=== PATIENT | female | born 1950 | race Caucasian/White ===

== ENCOUNTER 2017-07-30 20:22 | Inpatient (IN) | payer OTHER ==
[~2017-07-30] VITALS: Ht 160 cm; Wt 77.1 kg
--- NOTE | ~2017-07-30 | HC ---
[facility] [address] CONSULTATION Name: SALVATORE DENNIS Room #: 416-P ADM IN M.R.#: [id number] Admission: 07/31/17 Attend Phys: Sree Gibson DO Discharge: Date of : 50 Report #: [id number] THIS REPORT FOR: //name// CC: [facility] physician/PCP Sree Gibson DATE OF SERVICE: 07/31/2017 REFERRING PROVIDER: Sree Gibson DO REASON FOR CONSULT: Colitis. HISTORY OF PRESENT ILLNESS: The patient is a 67-year-old female who was in her usual state of health until yesterday when she ate a large amount of watermelon and a large steak dinner and had immediate abdominal distention and crampy abdominal pain. The patient developed some right hand tremors and she developed numerous episodes of emesis and diarrhea, which contained dark red blood. The patient had ongoing lower abdominal cramping and as such, she presented for evaluation. Her most recent colonoscopy was 10 years ago and was normal. She has had no prior episodes similar in the past. Workup in the form of laboratories and a CT scan of the abdomen and pelvis were obtained. The patient's labs showed a normal white blood cell count with a slight left shift of 80% neutrophils and her lactic acid was normal at 1.0. Her CT scan, however, showed acute inflammation about the descending colon with circumferential mural thickening and pericolonic inflammation without evidence of diverticula present in this area. In addition, she had sigmoid diverticulosis that were not inflamed. As the patient has evidence of a segmental colitis, she is admitted and I am asked to evaluate from a surgical standpoint. PAST MEDICAL HISTORY: Hypertension, diabetes mellitus, hypothyroidism, rheumatoid arthritis, partial thyroidectomy, bilateral total knee replacements and right shoulder repair. HOME MEDICATIONS: Lisinopril, amlodipine, methotrexate, hydrochlorothiazide, folic acid, Synthroid, vitamin D3, calcium, aspirin, and Centrum Silver. ALLERGIES: No known drug allergies. FAMILY HISTORY: Reviewed and noncontributory. SOCIAL HISTORY: The patient does not utilize tobacco, alcohol or illicit drugs. REVIEW OF SYSTEMS: GENERAL: The patient denies nocturnal fevers or chills. HEENT: No change in vision or change in hearing. NECK: No swelling or difficulty swallowing. [address] [address] CONSULTATION Name: SALVATORE DENNIS Room #: 416-P [facility] IN .R.#: [id number] Admission: 07/31/17 Attend Phys: Sree Gibson DO Discharge: Date of : 50 Report #: [id number] HEART: No chest pain or palpitations. LUNGS: No cough or shortness of breath. ABDOMEN: Abdominal pain, nausea, and vomiting. GENITOURINARY: No dysuria or hematuria. ENDOCRINE: No polyuria or polydipsia. HEMATOLOGIC: No history of bleeding or easy bruising. EXTREMITIES: No history of weakness or limited range of motion. NEUROLOGIC: No history of syncope or near syncopal episodes. SKIN AND INTEGUMENT: No history of abnormal lesions or moles. PSYCHIATRIC: No history of anxiety or depression. PHYSICAL EXAMINATION: VITAL SIGNS: Temperature 98.2, pulse 57, respirations 16, blood pressure 132/48, she is 5 feet 3 inches tall and weighs 170 pounds. GENERAL: Alert and oriented, in no acute distress. HEENT: Normocephalic, atraumatic. Pupils are equal, round, and reactive to light. NECK: Supple, without lymphadenopathy. Trachea midline. HEART: Regular rate and rhythm. LUNGS: Clear to auscultation bilaterally. ABDOMEN: Soft, nondistended, very minimal tenderness to deep palpation in the left flank, but no guarding, no rebound, no peritoneal signs or symptoms. GENITOURINARY: Normal external female genitalia. EXTREMITIES: No clubbing, cyanosis or edema. NEUROLOGIC: Cranial nerves 2-12 are grossly intact. PSYCHIATRIC: Normal mood and affect. SKIN AND INTEGUMENT: No abnormal lesions or moles. LABORATORY AND X-RAY DATA: CBC showed a white blood cell count of 9.6 thousand, hemoglobin 12.0, platelets 231,000. Creatinine is 1.4. Liver function enzymes are normal. Lactic acid normal at 1.0. Urinalysis is negative. TSH is slightly low at 0.27. CT scan of the abdomen and pelvis as per HPI shows segmental colitis of the descending colon, not associated with diverticula, although she does have sigmoid diverticulosis more distally without inflammation. ASSESSMENT AND PLAN: A 67-year-old female with segmental colitis, likely ischemic versus less likely infectious as no other contacts have had similar symptoms. Stool cultures are currently pending and she has been started on empiric Cipro and Flagyl. I do think she is reasonable to be on a clear liquid diet at this point as she has a marked improvement in her abdominal exam just with IV fluid rehydration since her presentation to the emergency room late last evening. I recommend a gastroenterology evaluation as she will likely necessitate repeat colonoscopy at some point once her inflammation has subsided and this will likely be done as an outpatient, but I will defer to gastroenterology and their expertise in this regard. I see no evidence of [facility] [address] [place] [address] CONSULTATION Name: SALVATORE DENNIS Room #: 416-P ADM IN .R.#: [id number] Admission: 07/31/17 Attend Phys: Sree Gibson, Discharge: Date of : 50 Report #: [id number] necessity for immediate general surgical intervention; however, I sincerely appreciate this consult. I will follow along closely while hospitalized and leave any further recommendations in the patient's chart as appropriate. <ELECTRONICALLY SIGNED> By: Josiane Beatty MD, FACS 08/01/17 1501 1301 1821 Josiane Beatty MD, FACS /nt
--- NOTE | ~2017-07-30 | PATH ---
[facility] [place] [address] [address] PATHOLOGY RPT PROCEDURE Name: SALVATORE MARTE Eladio Room #: 416-P DIS IN M.R.#: [id number] Admission: 07/31/17 Date of : 50 Discharge: 08/02/17 Report #: [id number] Path Case #: [id number] [facility] Accession Number: [id number] . 01 Material submitted: . BX OF SPLENIC FLEXURE TO DISTAL DESCENDING R/O ISCHEMIC . 01 Clinical history: . Pre-OP DX: Colitis Post -OP DX: Colitis, diverticulosis, internal hemorrhoids . 02 Diagnosis: Large intestine mucosa, splenic flexure to distal descending, endoscopic biopsy: - Compatible with ischemic colitis (please see comment). - Negative for dysplasia or malignancy. QRQ/08/02/2017 . 02 Comment: Examination shows fibrotic lamina propria with ghost's of crypts, as well as regenerative atypia within the surface epithelium in addition to abundant fibrinopurulent material consistent with ulceration. Although "explosive ulcers" are not identified. The differential diagnosis includes pseudomembranous colitis. There is no dysplasia or malignancy present. Please correlate clinically and with endoscopic findings. (IUV:mgr; 08/02/17) . . . . . . 02 Electronically signed: . Cyndie Van MD, Pathologist NPI- [id number] . 01 Gross description: . Received in formalin labeled "Salvatore Marte, BX splenic flexure to distal descending," are 4 segments of kiran soft tissue measuring 0.9 x 0.7 x 0.2 cm in aggregate dimensions and ranging from 0.2 to 0.4 cm in maximum dimension. The specimen is submitted entirely in cassette A1. (TSD; 08/01/2017) TOB/TOB . 02 Pathologist provided ICD-10: K55.9 . [address] [place] [address] PATHOLOGY RPT PROCEDURE Name: SALVATORE MARTE Room #: 416-P DIS IN M.R.#: [id number] Admission: 07/31/17 Date of : 50 Discharge: 08/02/17 Report #: [id number] Path Case #: [id number] [facility] . [id number] Performed at: 01 [facility] [place] [address] [facility] [address], [place], [place] [id number] MD Elkin Black MD Phone: [phone] Performed at: [address] [id number] MD Cyndie Van MD Phone: [phone]
--- NOTE | ~2017-07-30 | EKG ---
[address] [place] [address] ELECTROCARDIOGRAM REPORT Name: SALVATORE DENNIS Eladio Room #: 416-P [facility] IN ..#: [id number] Admission: 07/31/17 Attend Phys: Sree Gibson DO Discharge: Date of : 50 Report #: [id number] THIS REPORT FOR: //name// [facility] ED Test Date: 2017-07-30 Test Time: 20:41:48 Pat Name: SALVATORE DENNIS Department: Room: Gender: F Emissions Testing Technician: SHERICE : 1950 Requested By: Radha Kidd Order Number: [id number] MD: Mark Braxton Measurements Intervals [place] Rate: 57 P: 34 WI: 184 QRS: 5 QRSD: 102 T: 34 QT: 424 QTc: 413 Interpretive Statements Sinus bradycardia Poor R wave progression No previous ECG available for comparison Electronically Signed On 07-31-2017 8:57:24 CDT by Mark Braxton [email or web address] <ELECTRONICALLY SIGNED> By: Mark Braxton MD, [facility] 07/31/17 0857 [id number] 2041 Mark Braxton MD, FACC /EPI
[2017-07-30 21:17] VITALS: BP 133/51
[2017-07-30] MEDS ORDERED: LISINOPRIL20 MG PO (21:23)
[2017-07-30] MEDS ORDERED: NORVASC5 MG PO (21:23)
[2017-07-30] MEDS ORDERED: METHOTREXATE 22.5 MG PO (21:23)
[2017-07-30] MEDS ORDERED: FOLIC ACID1 MG PO (21:24)
[2017-07-30] MEDS ORDERED: HYDROCHLOROTH12.5 M1 PO (21:24)
[2017-07-30] MEDS ORDERED: VITAMIN D3400 UNI2 PO (21:25)
[2017-07-30] MEDS ORDERED: LEVOTHYROXINE100 MC1 PO (21:25)
[2017-07-30] MEDS ORDERED: ASPIR 8181 MG PO (21:26)
[2017-07-30] MEDS ORDERED: TUMS PO (21:26)
[2017-07-30] MEDS ORDERED: CENTRUM SILVER1 EAC4 PO (21:26)
[2017-07-30] MEDS ORDERED: TUMERIC PO (21:26)
[2017-07-30 21:43] LABS: ABSOLUTE NEUTROPHILS 7.6 thou/uL (1.4-8.2); BASOPHILS 0.4 % (0.0-2.0); EOSINOPHILS 1.8 % (0.0-3.0); HEMATOCRIT 33.2 % (37.0-47.0); LYMPHOCYTES 12.2 % (24.0-44.0); MCH 33.6 pg (26.0-34.0); MCV 93.3 fL (80.0-100.0); MONOCYTES 5.9 % (1.0-8.0); PLATELET COUNT 231 thou/uL (150-400); POLYS 79.7 % (36.0-66.0); RBC 3.56 mil/uL (4.20-5.00); RDW 14.3 % (10.5-14.5); WBC 9.6 thou/uL (4.0-11.0)
[2017-07-30 21:48] LABS: ANION GAP 9 mmol/L (7-16); BUN 34 mg/dL (7-18); CALCIUM 9.3 mg/dL (8.5-10.1); CHLORIDE 101 mmol/L (98-107); CO2 24 mmol/L (21-32); CREATININE 1.4 mg/dL (0.6-1.0); GLUCOSE 132 mg/dL (74-106); POTASSIUM 4.4 mmol/L (3.5-5.1); SODIUM 134 mmol/L (136-145)
[2017-07-30 21:57] LABS: ALBUMIN 4.1 g/dL (3.4-5.0); DIRECT BILIRUBIN 0.1 mg/dL (<0.1-0.3); LIPASE 327 U/L (73-393); SGOT 28 U/L (15-37); SGPT 42 U/L (30-65); TOTAL BILIRUBIN 0.4 mg/dL (<0.1-1.0); TOTAL PROTEIN 6.8 g/dL (6.4-8.2); TROPONIN-I < 0.04 ng/mL (<0.06)
[2017-07-30 23:58] LABS: URINE BILIRUBIN NEGATIVE (Negative); URINE BLOOD 2+ (Negative); URINE CLARITY CLEAR; URINE COLOR YELLOW; URINE GLUCOSE-RANDOM* NEGATIVE (Negative); URINE KETONES NEGATIVE (Negative); URINE LEUKOCYTES NEGATIVE (Negative); URINE NITRITE NEGATIVE (Negative); URINE PROTEIN (DIPSTICK) NEGATIVE (Negative); URINE UROBILINOGEN 0.2 E.U./dl (0.2-1.0)
[2017-07-31 00:10] LABS: CASTS None Seen /LPF (None Seen); CRYSTALS None Seen /LPF (None Seen); SQUAMOUS 0-3 Few /LPF (0-3)
[2017-07-31 00:11] LABS: BACTERIA None Seen /HPF (None Seen); URINE RBC 0-2 Rare /HPF (0-2); URINE WBC 0-5 Rare /HPF (0-5)
[2017-07-31 01:08] VITALS: BP 139/55
[2017-07-31 02:30] VITALS: BP 136/56
[2017-07-31 07:32] VITALS: BP 132/48
[2017-07-31 07:58] LABS: HEMATOCRIT 31.8 % (37.0-47.0)
[2017-07-31 14:13] LABS: GLYCOHEMOGLOBIN (HGB A1C) 5.5 % (4.8-5.6)
[2017-07-31 15:57] VITALS: BP 125/39
[2017-07-31 20:17] VITALS: BP 123/43
[2017-08-01 03:55] VITALS: BP 128/42
[2017-08-01 04:36] LABS: ALBUMIN 3.1 g/dL (3.4-5.0); CALCIUM 8.5 mg/dL (8.5-10.1); MAGNESIUM 1.9 mg/dL (1.8-2.4); POTASSIUM 4.2 mmol/L (3.5-5.1); TOTAL BILIRUBIN 0.6 mg/dL (<0.1-1.0); TOTAL PROTEIN 5.8 g/dL (6.4-8.2)
[2017-08-01 04:50] LABS: ABSOLUTE NEUTROPHILS 7.7 thou/uL (1.4-8.2); BASOPHILS 0.2 % (0.0-2.0); EOSINOPHILS 0.7 % (0.0-3.0); HEMATOCRIT 29.7 % (37.0-47.0); HEMOGLOBIN 10.3 gm/dL (12.0-15.0); LYMPHOCYTES 10.5 % (24.0-44.0); MCH 32.2 pg (26.0-34.0); MCHC 34.6 g/dL (28.0-37.0); MCV 93.1 fL (80.0-100.0); PLATELET COUNT 178 thou/uL (150-400); POLYS 83.6 % (36.0-66.0); RBC 3.19 mil/uL (4.20-5.00); RDW 13.8 % (10.5-14.5); WBC 9.1 thou/uL (4.0-11.0)
[2017-08-01 07:24] VITALS: BP 126/52
[2017-08-01 15:42] VITALS: BP 129/43
[2017-08-01 19:50] VITALS: BP 116/45
[2017-08-02 03:45] VITALS: BP 126/44
[2017-08-02 05:26] LABS: MCH 32.2 pg (26.0-34.0); MCHC 34.6 g/dL (28.0-37.0); MCV 93.1 fL (80.0-100.0); RBC 3.11 mil/uL (4.20-5.00); WBC 6.8 thou/uL (4.0-11.0)
[2017-08-02 07:37] VITALS: BP 136/48
[2017-08-02] MEDS ORDERED: FLAGYL500 MG PO (10:12)
[2017-08-02 11:32] VITALS: BP 136/46
== END 2017-08-02 12:05 | disposition home or self-care (01) | DRG 377 ==
LOC: ER 20:22 → 4N 07-31 00:46 → EROBS 07-31 00:46 → 4N 07-31 01:20 → ENTRNSPT 08-02 11:52 → CMPTRNSPT 08-02 12:05 → 4N 08-02 12:05
PROVIDERS: Emergency Medicine; Hospitalist; Internal Medicine Geriatric Medicine; Nurse Practitioner Acute Care
PROC: 0DBL8ZX Excision of Transverse Colon, Via Natural or Artificial Opening Endoscopic, Diagnostic (ICD-10-PCS; principal; 2017-08-01)
PROC: 0DBM8ZX Excision of Descending Colon, Via Natural or Artificial Opening Endoscopic, Diagnostic (ICD-10-PCS; principal; 2017-08-01)
PROC: 0DBN8ZX Excision of Sigmoid Colon, Via Natural or Artificial Opening Endoscopic, Diagnostic (ICD-10-PCS; principal; 2017-08-01)
DX: K57.31 Diverticulosis of large intestine without perforation or abscess with bleeding (principal); N17.0 Acute kidney failure with tubular necrosis; K55.9 Vascular disorder of intestine, unspecified; K64.8 Other hemorrhoids; K44.9 Diaphragmatic hernia without obstruction or gangrene; I10 Essential (primary) hypertension; M06.9 Rheumatoid arthritis, unspecified; E11.9 Type 2 diabetes mellitus without complications; E89.0 Postprocedural hypothyroidism; Z96.653 Presence of artificial knee joint, bilateral; Z79.82 Long term (current) use of aspirin; Z79.899 Other long term (current) drug therapy
CPT/HCPCS: 10790; 62110; 62900